=== PATIENT | male | born 1950 | race Caucasian/White ===

== ENCOUNTER 2021-12-27 09:32 | Day surgery (SDC) | payer MEDICARE ==
[~2021-12-27] VITALS: Ht 177.8 cm; Wt 94.7 kg
[~2021-12-27 09:32] MED LIST: LOVA40 PO; Lisinopril2.5 MG PO; SILD25T PO; TADA10TA
--- NOTE | 2021-12-27 11:32 | NUR ---
12/27/21 1132 Sary Rahman History, Chart, Medications and Allergies reviewed before start of procedure. Patient confirms NPO status and agrees with scheduled surgery. 3-LEAD EKG REVIEWED WITH PHYSICIAN PRIOR TO START OF PROCEDURE. MONITOR INTACT WITH CONTINUOUS PULSE OXIMETRY AND INTERMITTENT BP. PATIENT DETERMINED TO BE ASA APPROPRIATE FOR PROPOFOL SEDATION PRIOR TO START OF PROCEDURE BY DR. ENGLAND.
== END 2021-12-27 12:49 | disposition home or self-care (01) ==
LOC: ORSCMMR 09:32 → ORD 11:15 → ORSCMMR 11:15
PROVIDERS: Surgery
PROC: 0DBH8ZX Excision of Cecum, Via Natural or Artificial Opening Endoscopic, Diagnostic (ICD-10-PCS; principal; 2021-12-27 11:15)
DX: Z12.11 Encounter for screening for malignant neoplasm of colon (principal); Z86.010 Personal history of colon polyps; D12.0 Benign neoplasm of cecum; F41.8 Other specified anxiety disorders; I10 Essential (primary) hypertension; E78.5 Hyperlipidemia, unspecified; F17.210 Nicotine dependence, cigarettes, uncomplicated; Z79.899 Other long term (current) drug therapy
CPT/HCPCS: 88305; J2704; J7120

== ENCOUNTER 2023-10-19 05:47 | Day surgery (SDC) | payer MEDICARE ==
[2023-10-19] VITALS (12 sets, daily range): BP systolic 87–149; BP diastolic 50–82
[~2023-10-19] VITALS: Ht 175.3 cm; Wt 86.0 kg
[2023-10-19] MEDS ORDERED: ACET500 PO (06:23)
--- NOTE | 2023-10-19 07:27 | NUR ---
PATIENT GAVE HIS GLASSES TO HIS FOR SAFE KEEPING DURING SURGERY.
--- NOTE | 2023-10-19 08:25 | NUR ---
10/19/23 0825 Teresa England SPINAL NERVE BLOCK COMPLETED BY DR. UNGER UPON ENTRY TO THE OR. PT TOLERATED WELL.
--- NOTE | 2023-10-19 10:52 | NUR ---
PT TO SURGICAL FLOOR AT APPROXIMATELY 1040 VIA HOSPITAL BED. PT RESTING COMFORTABLY, REPIRATIONS ARE EVEN AND UNLABORED. PT DENIES PAIN AT THIS TIME. EDUCATED PT ON USE OF THE CALL LIGHT. BED IN LOWEST POSITION.
--- NOTE | 2023-10-19 17:22 | NUR ---
SHIFT SUMMARY PT ADMITTED FROM PACU THIS SHIFT. POD 0 FROM LEFT ANTERIOR HIP. PT'S PAIN CONTROLLED WELL PER EMR. PT OOB WITH THERAPY THIS SHIFT. DRESSING ON L HIP C/D/I. VSS, BREATHING EVEN AND UNLABORED. PT DENIES NAUSEA. VOIDED 225ML DARK YELLOW URINE. PT IS RESTING COMFORTABLY WITH AT BEDSIDE. CALL LIGHT WITHIN REACH.
[2023-10-20 03:03] VITALS: BP 133/73
--- NOTE | 2023-10-20 04:01 | NUR ---
SHIFT SUMMARY POD1 L ISHAN. EXOFIN DRESSING REMAINS C/D/I. VSS. PT SLEPT ON AND OFF T/O THE NIGHT. AMBULATED IN THE HALLS AND TO THE BATHROOM WITH THE HEALTH CARE COORDINATOR. VOIDING W/O DIFFICULTY. TOLLERATING PO INTAKE. MEDICATED FOR PAIN ONCE WITH PRN, OTHERWISE PAIN HAS BEEN MANAGED WITH SCHEDULED MEDICATION. NO ACUTE EVENTS NOTED. PLAN FOR PT TO WORK WITH PHYSICAL THERAPY AND D/C HOME.
[2023-10-20 06:35] LABS: BASOPHILS ABSOLUTE AUTO 0.01 K/mm3 (0.00-0.23); BASOPHILS PERCENT AUTO 0 % (0-2); EOSINOPHILS ABSOLUTE AUTO 0.03 K/mm3 (0.00-0.68); EOSINOPHILS PERCENT AUTO 0 % (0-6); Hematocrit 34.2 % (37.0-53.0); Hemoglobin 11.6 g/dL (13.5-17.5); IMMATURE GRAN ABSOLUTE AUTO 0.05 K/mm3 (0.00-0.10); IMMATURE GRAN PERCENT AUTO 1 % (0-1); LYMPHOCYTES ABSOLUTE AUTO 0.72 K/mm3 (0.84-5.20); LYMPHOCYTES PERCENT AUTO 8 % (21-46); MONOCYTES ABSOLUTE AUTO 0.66 K/mm3 (0.16-1.47); MONOCYTES PERCENT AUTO 7 % (4-13); Mean Corpuscular HGB 32.1 pg (26.0-34.0); Mean Corpuscular HGB Conc 33.9 g/dL (31.5-36.5); Mean Corpuscular Volume 95 fL (80-100); NEUTROPHILS ABSOLUTE AUTO 8.02 K/mm3 (1.96-9.15); NEUTROPHILS PERCENT AUTO 85 % (41-73); Platelet Count 219 K/mm3 (150-400); RDW Coefficient Variation 12.1 % (11.7-14.2); RDW Standard Deviation 42.3 fL (35.1-46.3); Red Blood Cell Count 3.61 M/mm3 (4.30-5.90); White Blood Cell Count 9.49 K/mm3 (4.00-11.30)
[2023-10-20 07:04] LABS: Magnesium, Blood 2.1 mg/dL (1.6-2.4)
[2023-10-20 07:05] LABS: Bun/Creatinine Ratio 29.8 (12.0-20.0); Creatinine, Blood 0.77 mg/dL (0.60-1.20); Potassium, Blood 3.9 mmol/L (3.5-5.5)
[2023-10-20 07:55] VITALS: BP 130/83
--- NOTE | 2023-10-20 09:58 | NUR ---
Pt. is awake in a chair dressed for discharge when he welcomed my visit. Pt. had a guest. Facilitated encouragement. Pt. verbalzied gratitude for the spiritual care visit.
--- NOTE | 2023-10-20 10:56 | NUR ---
DISCHARGE PT DISCHARGED AT APPROXIMATELY 1050 VIA WC TO POV. VSS, PAIN CONTROLLED. BREATHING EVEN AND UNLABORED. IV D/C'D. DISCHARGE INSTRUCTIONS REVIEWED WITH PATIENT AND , THEY EXPRESSED UNDERSTANDING AND ALL QUESTIONS ANSWERED.
--- NOTE | 2023-10-20 11:13 | NUR ---
EDGER SAW OPERATOR DOCUMENTATION REVIEWED ALL DOCUMENTATION BY EDGER SAW OPERATOR.
== END 2023-10-20 10:47 | disposition home or self-care (01) ==
LOC: ORSCMMR 05:47 → ORD 07:30 → ORSCMMR 07:30 → SURS 10:50 → ORSCMMR 10-20 10:47 → SURS 10-20 10:47
PROVIDERS: Orthopaedic Surgery
PROC: 0SRB0JA Replacement of Left Hip Joint with Synthetic Substitute, Uncemented, Open Approach (ICD-10-PCS; principal; 2023-10-19 07:30)
DX: M16.12 Unilateral primary osteoarthritis, left hip (principal); I10 Essential (primary) hypertension; F17.210 Nicotine dependence, cigarettes, uncomplicated; E78.5 Hyperlipidemia, unspecified; F41.8 Other specified anxiety disorders; Z79.899 Other long term (current) drug therapy
CPT/HCPCS: 27130; 0054T; 36415; 72170; 80048; 83735; 85025; 97110; 97116; 97162; A9270; C1776; J0171; J0690; J0735; J1100; J1885; J2250; J2405; J2704; J2795; J3010; J7120